=== PATIENT | female | born 1960 | race Caucasian/White ===

== ENCOUNTER 2016-09-15 15:42 | Inpatient (IN) | payer MEDICARE ==
[~2016-09-15] VITALS: Ht 170.2 cm; Wt 148.2 kg
[2016-09-15] MEDS ORDERED: SODIUM CHLORIDE FLUSH 10ML SYR IVF ONE (16:30)
[2016-09-15] MEDS ORDERED: ASPIRIN 81 MG TABLET CHEW PO ONE (16:30)
[2016-09-15 16:55] LABS: HEMOGLOBIN 14.2 g/dL (11.7-16.4)
[2016-09-15 17:06] LABS: BLOOD UREA NITROGEN 15 mg/dL (7-18)
[2016-09-15] MEDS ORDERED: LOSA1TAB17 PO (17:15)
[2016-09-15] MEDS ORDERED: OXYB5TAB7 PO (17:15)
[2016-09-15] MEDS ORDERED: AMIT25TA PO (17:15)
[2016-09-15] MEDS ORDERED: DULO30CA2 PO (17:15)
[2016-09-15] MEDS ORDERED: OXYC1TAB8 PO (17:15)
[2016-09-15] MEDS ORDERED: MELO-190 PO (17:15)
[2016-09-15] MEDS ORDERED: OMEP-110 PO (17:15)
[2016-09-15] MEDS ORDERED: GABA300C10 PO (17:15)
[2016-09-15 17:16] LABS: IS PT STATUS REG ER OR PRE ER? YES
[2016-09-15] MEDS ORDERED: ASPIRIN 81 MG TABLET CHEW ONE (17:24)
[2016-09-15] MEDS ORDERED: LABETALOL 5MG/ML, 20ML IV PRN (21:30)
[2016-09-15] MEDS ORDERED: BISACODYL 10 MG SUPP PR PRN (21:30)
[2016-09-15] MEDS ORDERED: TRAZODONE 50MG TABLET PO PRN (21:30)
[2016-09-15] MEDS ORDERED: DOCUSATE 100 MG CAPSULE PO PRN (21:30)
[2016-09-15] MEDS ORDERED: POLYETHYLENE GLYCOL 17 GM PACKET PO PRN (21:30)
[2016-09-15] MEDS ORDERED: ONDANSETRON ODT 4 MG PO PRN (21:30)
[2016-09-15 23:35] LABS: IS PT STATUS REG ER OR PRE ER? NO
[2016-09-16] MEDS: MELOXICAM 15 MG TABLET PO SCH ×3 (00:08→20:07)
[2016-09-16] MEDS: DULOXETINE 30 MG CAPSULE.DR PO SCH ×2 (00:09→20:06)
[2016-09-16] MEDS: OMEPRAZOLE 20 MG CAPSULE.DR PO SCH ×3 (00:09→20:05)
[2016-09-16] MEDS: ATORVASTATIN 80 MG TABLET PO SCH ×2 (00:09→20:06)
[2016-09-16] MEDS: GABAPENTIN 300 MG CAPSULE PO SCH ×4 (00:09→20:05)
[2016-09-16] MEDS: OXYBUTYNIN CHLORIDE 5 MG TABLET PO SCH ×3 (00:09→20:06)
[2016-09-16] MEDS: AMITRIPTYLINE 25 MG TABLET PO SCH ×2 (00:09→20:06)
[2016-09-16] MEDS: ENOXAPARIN 40 MG/0.4 ML SQ SCH ×2 (00:10→20:08)
[2016-09-16 01:11] VITALS: BP 121/70
[2016-09-16 06:06] LABS: ASPARTATE AMINO TRANSFERASE 13 U/L (15-37); BLOOD UREA NITROGEN 14 mg/dL (7-18)
[2016-09-16 06:08] LABS: IS PT STATUS REG ER OR PRE ER? NO
[2016-09-16 06:18] LABS: HEMOGLOBIN 12.8 g/dL (11.7-16.4)
[2016-09-16 07:12] VITALS: BP 127/78
[2016-09-16] MEDS ORDERED: POTASSIUM CHLORIDE 20 MEQ TAB.ER.PRT PO ONE (07:30)
[2016-09-16] MEDS ORDERED: GABAPENTIN 300 MG CAPSULE PO SCH (09:00)
[2016-09-16] MEDS ORDERED: MELOXICAM 15 MG TABLET PO SCH (09:00)
[2016-09-16] MEDS ORDERED: OXYBUTYNIN CHLORIDE 5 MG TABLET PO SCH (09:00)
[2016-09-16] MEDS ORDERED: OMEPRAZOLE 20 MG CAPSULE.DR PO SCH (09:00)
[2016-09-16] MEDS ORDERED: REGADENOSON 0.4 MG/5 ML SYRINGE ONE (09:21)
[2016-09-16] MEDS: LOSARTAN 50MG TABLET PO SCH (11:47)
[2016-09-16] MEDS: ASPIRIN 81 MG TABLET CHEW PO SCH (11:47)
[2016-09-16] MEDS: HYDROCHLOROTHIAZIDE 25 MG TABLET PO SCH (11:47)
[2016-09-16] MEDS ORDERED: POTASSIUM CHLORIDE 20 MEQ TAB.ER.PRT ONE (11:50)
[2016-09-16 11:54] VITALS: BP 127/85
[2016-09-16 13:21] VITALS: BP 124/76
[2016-09-16 19:57] VITALS: BP 130/69
[2016-09-16] MEDS ORDERED: DULOXETINE 30 MG CAPSULE.DR PO SCH (21:00)
[2016-09-16] MEDS ORDERED: AMITRIPTYLINE 25 MG TABLET PO SCH (21:00)
[2016-09-16] MEDS: OXYcodone/APAP 7.5/325MG TABLET PO PRN (21:42)
[2016-09-17 02:09] VITALS: BP 134/74
[2016-09-17 06:23] LABS: BLOOD UREA NITROGEN 16 mg/dL (7-18)
[2016-09-17 07:34] VITALS: BP 120/56
[2016-09-17] MEDS: HYDROCHLOROTHIAZIDE 25 MG TABLET PO SCH (08:03)
[2016-09-17] MEDS: GABAPENTIN 300 MG CAPSULE PO SCH ×3 (08:03→22:26)
[2016-09-17] MEDS: ASPIRIN 81 MG TABLET CHEW PO SCH (08:03)
[2016-09-17] MEDS: OXYBUTYNIN CHLORIDE 5 MG TABLET PO SCH ×2 (08:03→22:25)
[2016-09-17] MEDS: OMEPRAZOLE 20 MG CAPSULE.DR PO SCH ×2 (08:03→22:27)
[2016-09-17] MEDS: MELOXICAM 15 MG TABLET PO SCH ×2 (08:04→22:26)
[2016-09-17] MEDS: LOSARTAN 50MG TABLET PO SCH (08:04)
[2016-09-17] MEDS ORDERED: HEPARIN 5,000 UNITS/ML, 1ML IV ONE (13:30)
[2016-09-17] MEDS ORDERED: HEPARIN 5,000 UNITS/ML, 1ML IV PRN (13:30)
[2016-09-17] MEDS ORDERED: HEPARIN 25,000 UNITS/500ML PMX 500 ML IV PRN (13:30)
[2016-09-17] MEDS: OXYcodone/APAP 7.5/325MG TABLET PO PRN (13:36)
[2016-09-17 14:09] VITALS: BP 129/60
[2016-09-17] MEDS: METOPROLOL TARTRATE 25 MG TABLET PO SCH (18:07)
[2016-09-17 19:07] VITALS: BP 104/64
[2016-09-17] MEDS: ENOXAPARIN 40 MG/0.4 ML SQ SCH (21:30)
[2016-09-17] MEDS: DULOXETINE 30 MG CAPSULE.DR PO SCH (22:24)
[2016-09-17] MEDS: AMITRIPTYLINE 25 MG TABLET PO SCH (22:25)
[2016-09-17] MEDS: ATORVASTATIN 80 MG TABLET PO SCH (22:26)
[2016-09-18 03:20] VITALS: BP 124/73
[2016-09-18] MEDS: METOPROLOL TARTRATE 25 MG TABLET PO SCH ×2 (05:14→17:22)
[2016-09-18] MEDS: D5%-0.45% NACL 1,000 ML IV SCH ×2 (05:16→16:00)
[2016-09-18 05:21] LABS: HEMOGLOBIN 13.6 g/dL (11.7-16.4)
[2016-09-18 05:23] LABS: BLOOD UREA NITROGEN 15 mg/dL (7-18)
[2016-09-18] MEDS ORDERED: SODIUM CHLORIDE 0.9% 1,000 ML IV ONE (07:12)
[2016-09-18 07:30] VITALS: BP 106/68
[2016-09-18] MEDS: OMEPRAZOLE 20 MG CAPSULE.DR PO SCH (08:17)
[2016-09-18] MEDS: MELOXICAM 15 MG TABLET PO SCH (08:17)
[2016-09-18] MEDS: GABAPENTIN 300 MG CAPSULE PO SCH ×2 (08:18→17:22)
[2016-09-18] MEDS: OXYBUTYNIN CHLORIDE 5 MG TABLET PO SCH (08:18)
[2016-09-18] MEDS: ASPIRIN 81 MG TABLET CHEW PO SCH (08:18)
[2016-09-18] MEDS: LOSARTAN 50MG TABLET PO SCH (08:18)
[2016-09-18] MEDS: HYDROCHLOROTHIAZIDE 25 MG TABLET PO SCH (08:19)
[2016-09-18] MEDS ORDERED: VERAPAMIL 2.5 MG/ML, 2ML ONE (11:15)
[2016-09-18] MEDS ORDERED: FENTANYL PF 100 MCG/2ML ONE (11:15)
[2016-09-18] MEDS ORDERED: HEPARIN 1,000 UNITS/ML, 10ML ONE (11:15)
[2016-09-18] MEDS ORDERED: LIDOCAINE 2%, 20ML ONE (11:15)
[2016-09-18] MEDS ORDERED: NITROGLYCERIN 5 MG/ML, 10ML ONE (11:15)
[2016-09-18] MEDS ORDERED: TICAGRELOR 90 MG TABLET ONE (11:15)
[2016-09-18] MEDS ORDERED: BIVALIRUDIN 250 MG ONE (11:15)
[2016-09-18] MEDS ORDERED: MIDAZOLAM 1 MG/ML, 5ML ONE (11:15)
[2016-09-18 13:40] VITALS: BP 85/53
[2016-09-18] MEDS ORDERED: ATOR40TA PO (15:09)
== END 2016-09-18 18:34 | disposition home or self-care (01) | DRG 287 ==
LOC: ED 18:39 → OBSVTOIN 21:13 → EDIP 21:13 → 5SO 22:12
PROVIDERS: ADMIT Internal Medicine; ATTEND Internal Medicine
PROC: 4A023N7 Measurement of Cardiac Sampling and Pressure, Left Heart, Percutaneous Approach (ICD-10-PCS; principal; 2016-09-18)
PROC: B2111ZZ Fluoroscopy of Multiple Coronary Arteries using Low Osmolar Contrast (ICD-10-PCS; 2016-09-18)
PROC: B2151ZZ Fluoroscopy of Left Heart using Low Osmolar Contrast (ICD-10-PCS; 2016-09-18)
DX: I24.9 Acute ischemic heart disease, unspecified (principal); E87.1 Hypo-osmolality and hyponatremia; I50.30 Unspecified diastolic (congestive) heart failure; R07.89 Other chest pain; M79.7 Fibromyalgia; E66.01 Morbid (severe) obesity due to excess calories; E78.00 Pure hypercholesterolemia, unspecified; E78.5 Hyperlipidemia, unspecified; E87.6 Hypokalemia; J45.909 Unspecified asthma, uncomplicated; R32 Unspecified urinary incontinence; F32.9 Major depressive disorder, single episode, unspecified; Z79.899 Other long term (current) drug therapy; Z87.891 Personal history of nicotine dependence; Z90.49 Acquired absence of other specified parts of digestive tract; Z90.710 Acquired absence of both cervix and uterus; Z93.0 Tracheostomy status; Z82.3 Family history of stroke; Z82.49 Family history of ischemic heart disease and other diseases of the circulatory system; Z80.9 Family history of malignant neoplasm, unspecified; I27.81 Cor pulmonale (chronic); I11.0 Hypertensive heart disease with heart failure
CPT/HCPCS: 36415; 71010; 78452; 80048; 80053; 80061; 82040; 83880; 84439; 84443; 84484; 85025; 85379; 85520; 85610; 93005; 93017; 93306; 93458; 93970; 99285; C1894; J0583; J1644; J1650; J2250; J2785; J3010; J3490; A9502; C9898; Q9967

== ENCOUNTER 2017-01-27 19:08 | Emergency (ER) | payer MEDICARE ==
[~2017-01-27] VITALS: Ht 172.7 cm; Wt 136.5 kg
[~2017-01-27 19:08] MED LIST: AMIT25TA PO; ATOR40TA PO; DULO30CA2 PO; GABA300C10 PO; LOSA1TAB17 PO; MELO-190 PO; OMEP-110 PO; OXYB5TAB7 PO; OXYC1TAB8 PO
[2017-01-27] MEDS ORDERED: SODIUM CHLORIDE FLUSH 10ML SYR IVF ONE (19:30)
[2017-01-27 19:43] LABS: HEMATOCRIT 43.5 % (34.6-47.8); HEMOGLOBIN 14.1 g/dL (11.7-16.4); WHITE BLOOD COUNT 9.4 x10^3/uL (3.4-10)
[2017-01-27] MEDS ORDERED: DULO60CA7 PO (19:45)
[2017-01-27] MEDS ORDERED: OXYB5TAB7 PO (19:45)
[2017-01-27] MEDS ORDERED: ASPI81TA50 PO (19:45)
[2017-01-27 19:53] LABS: ASPARTATE AMINO TRANSFERASE 17 U/L (15-37); BLOOD UREA NITROGEN 14 mg/dL (7-18)
[2017-01-27] MEDS ORDERED: FUROSEMIDE 20 MG TABLET PO ONE (21:00)
[2017-01-27 21:06] VITALS: BP 177/85
== END 2017-01-27 21:24 | disposition home or self-care (01) ==
LOC: ED 21:18
DX: R60.0 Localized edema (principal); I11.0 Hypertensive heart disease with heart failure; I50.9 Heart failure, unspecified; J45.909 Unspecified asthma, uncomplicated; Z90.49 Acquired absence of other specified parts of digestive tract; Z90.710 Acquired absence of both cervix and uterus
CPT/HCPCS: 36415; 71010; 80053; 83880; 84443; 85025; 85610; 93005; 99285